=== PATIENT | female | born 1970 | race Caucasian/White ===

== ENCOUNTER 2020-09-15 15:51 | Emergency (ER) | payer OTHER ==
[~2020-09-15] VITALS: Ht 154.9 cm; Wt 82.1 kg
[2020-09-15 15:58] VITALS: BP 141/89
[2020-09-15] MEDS ORDERED: KETOROLAC 60 MG/2 ML VIAL IM ONE (17:15)
[2020-09-15] MEDS ORDERED: DICL20GE TP (18:07)
[2020-09-15] MEDS ORDERED: ACET-8386 PO (18:07)
[2020-09-15] MEDS ORDERED: HYDROcodone/APAP 5/325 MG 1 TAB TAB PO ONE (18:10)
[2020-09-15 19:06] VITALS: BP 135/90
== END 2020-09-15 19:00 | disposition home or self-care (01) ==
LOC: MED 15:51
DX: M54.42 Lumbago with sciatica, left side (principal); E11.9 Type 2 diabetes mellitus without complications; I10 Essential (primary) hypertension; Z90.49 Acquired absence of other specified parts of digestive tract; Z98.890 Other specified postprocedural states; Z79.899 Other long term (current) drug therapy
CPT/HCPCS: 81002; 81025; 96372; 99283; J1885

== ENCOUNTER 2023-05-25 18:46 | Emergency (ER) | payer OTHER ==
[~2023-05-25] VITALS: Ht 152.4 cm; Wt 72.6 kg
[~2023-05-25 18:46] MED LIST: ACET-8905 PO; DICL20GE TP
[2023-05-25 19:25] VITALS: BP 181/101; PULSE 88; RESP 18; TEMP 97; O2SAT 98
[2023-05-25] MEDS ORDERED: ACETAMINOPHEN 325 MG TAB PO ONE (21:20)
[2023-05-25] MEDS ORDERED: IBUP-2213 PO (22:10)
[2023-05-25 22:50] VITALS: BP 139/90; PULSE 89; RESP 18; TEMP 97.9; O2SAT 97
== END 2023-05-25 22:50 | disposition home or self-care (01) ==
LOC: MED 18:46
DX: S62.316A Displaced fracture of base of fifth metacarpal bone, right hand, initial encounter for closed fracture (principal); S06.0X0A Concussion without loss of consciousness, initial encounter; R93.0 Abnormal findings on diagnostic imaging of skull and head, not elsewhere classified; E11.9 Type 2 diabetes mellitus without complications; I10 Essential (primary) hypertension; Z79.899 Other long term (current) drug therapy; Z79.1 Long term (current) use of non-steroidal anti-inflammatories (NSAID); Z88.5 Allergy status to narcotic agent; X58.XXXA Exposure to other specified factors, initial encounter; Y93.01 Activity, walking, marching and hiking; Y92.89 Other specified places as the place of occurrence of the external cause; Y99.8 Other external cause status
CPT/HCPCS: 70450; 73110; 99284